=== PATIENT | male | born 1945 | race Caucasian/White ===

== ENCOUNTER 2023-05-12 13:00 | Outpatient (CLI) | payer MEDICARE | END 2023-05-12 13:01 | disposition home or self-care (01) | LOC: CSHCP 13:00 | PROVIDERS: ATTEND Internal Medicine | DX: J84.10 Pulmonary fibrosis, unspecified (principal); I51.7 Cardiomegaly; I38 Endocarditis, valve unspecified; J98.4 Other disorders of lung | CPT/HCPCS: 93306; 94010; 94618; 94726 ==